=== PATIENT | male | born 1985 | race Hispanic/Latino ===

== ENCOUNTER 2020-09-06 12:55 | Emergency (ER) | payer SELFPAY ==
[~2020-09-06] VITALS: Ht 162.6 cm; Wt 127.0 kg
[2020-09-06 17:26] VITALS: BP 110/77
== END 2020-09-06 17:30 | disposition home or self-care (01) | DRG 918 ==
LOC: ED 12:55
DX: T63.301A Toxic effect of unspecified spider venom, accidental (unintentional), initial encounter (principal); I10 Essential (primary) hypertension; F32.9 Major depressive disorder, single episode, unspecified; F17.210 Nicotine dependence, cigarettes, uncomplicated; Z91.19 Patient's noncompliance with other medical treatment and regimen